=== PATIENT | female | born 1960 | race Caucasian/White ===

== ENCOUNTER 2016-08-19 22:43 | Inpatient (IN) | payer BC, MEDICARE ==
[~2016-08-19] VITALS: Ht 170.2 cm; Wt 82.3 kg
[~2016-08-19 22:43] MED LIST: ABAT125S SC; CHOL500021 OR; COPP2TAB PO; CYANLIQ OR; CYCL1TAB18 PO; DOCU-94 PO; FENT100D2 TOP; FENT75DI2 TD; FOLITAB45 OR; FURO80TA3 PO; LEUC5TAB PO; MAGN400C3 PO; METH25IN14 IJ; MULT-224 PO; OXY20CRT PO; POTA20TA53 PO; PRED1TAB19 PO; PREG100C PO; PREG50CA PO
[2016-08-19 23:14] LABS: Basophils # (auto) 0 uL; CONDITION Y; DEFINITIVE SEE PRINTOUT; Eosinophils # (auto) 0 uL; Eosinophils % (auto) 2.8 % (0.0-7.0); Hematocrit 28.8 % (36.0-46.0); Hemoglobin 9.6 g/dL (12.2-16.2); Lymphocytes # (auto) 0.6 uL; Lymphocytes % (auto) 44.1 % (10.0-50.0); Mean Corpuscular Hemoglobin 32.3 pg (28.0-32.0); Mean Corpuscular Hgb Conc. 33.3 g/dL (32.0-36.0); Mean Platelet Volume 10.5 fL (7.4-10.4); Monocytes # (auto) 0 uL; Monocytes % (auto) 0.3 % (0.0-12.0); Neutrophils # (auto) 0.7 uL; Neutrophils % (auto) 52.8 % (37.0-80.0); Platelet Count (auto) 192 10^3/uL (140-450); Red Cell Distribution Width 14.9 % (11.6-16.0); SUSPECT SEE PRINTOUT
[2016-08-19 23:26] LABS: White Blood Cell 1.3 10^3/uL (4.4-10.8)
[2016-08-19] MEDS ORDERED: SODIUM CHLORIDE 0.9% 1,000 ML IV ONE (23:30)
[2016-08-19] MEDS ORDERED: IBUPROFEN 600 MG TAB PO ONE (23:30)
[2016-08-19] MEDS ORDERED: ACETAMINOPHEN 325 MG TAB PO ONE (23:30)
[2016-08-19 23:32] LABS: Albumin 1.3 g/dL (3.4-5.0); Anion Gap 15 (5-15); BUN/Creatinine Ratio 28.7; Blood Urea Nitrogen 29 mg/dL (7-18); Calcium 6.7 mg/dL (8.5-10.1); Carbon Dioxide 18 mmol/L (21-32); Chloride 112 mmol/L (98-107); GFR African American 73 mL/min; GFR Non-African American 61 mL/min; Glucose 54 mg/dL (74-106); Magnesium 1.6 mg/dL (1.6-2.6); Potassium 3.5 mmol/L (3.5-5.1); Sodium 145 mmol/L (136-145)
[2016-08-19 23:35] LABS: INR 1.83 (0.9-1.15); Partial Thromboplastin Time 59.1 sec (22.64-33.71)
[2016-08-19 23:37] LABS: Lactic Acid w/Reflex 7.2 mmol/L (0.4-2.0)
[2016-08-19 23:39] LABS: Alkaline Phosphatase 141 U/L (45-117); Aspartate Aminotransferase 22 U/L (15-37); Bilirubin, Total 1.1 mg/dL (0.2-1.0); Total Protein 3.8 g/dL (6.4-8.2)
[2016-08-19 23:43] LABS: B-Type Natriuretic Peptide 154.79 pg/mL (0-100)
[2016-08-19] MEDS ORDERED: NOREPINEPHRINE BITARTRATE 250 ML IV ONE (23:44)
[2016-08-19 23:45] LABS: REFLEX LACTIC ACID YES OR NO YES
[2016-08-19 23:46] LABS: Prothrombin Time 20.1 sec (9.37-12.3); Temperature: 22.3 C (20.0-25.0)
[2016-08-19 23:50] LABS: Urine RBC None Seen /hpf (0 - 4)
[2016-08-19 23:54] LABS: Platelet Estimate Adequate; RBC Morphology Normal
[2016-08-19 23:58] LABS: Urine Bilirubin Negative (Negative); Urine Blood Negative /uL (Negative); Urine Color Yellow (Yellow); Urine Glucose Normal (Normal); Urine Hyaline Cast FEW /lpf (0 - 2); Urine Ketone Negative (Negative); Urine Squamous Epithelial Cell FEW /hpf (<5); Urine WBC Clumps PRESENT /hpf (None Seen); Urine pH 5.5 (5.0-8.0)
[2016-08-20] VITALS (36 sets, daily range): BP systolic 41–150; BP diastolic 4–105
[2016-08-20] MEDS ORDERED: VANCOMYCIN 1GM/250ML D5W 250 ML IV ONE
[2016-08-20] MEDS ORDERED: cefTRIAXone 1GM/50ML D5W 50 ML IV ONE
[2016-08-20 00:03] LABS: Urine Nitrite POSITIVE (Negative)
[2016-08-20] MEDS ORDERED: PREGABALIN 25 MG CAP PO ONE (00:30)
[2016-08-20] MEDS ORDERED: methylPREDNISolone SOD SUCC 125 MG/2 ML VL IV ONE (01:30)
[2016-08-20] MEDS ORDERED: DOPamine 1600MCG/ML 250 ML IV ONE (01:30)
[2016-08-20] MEDS ORDERED: SODIUM CHLORIDE 0.9% 2,000 ML IV ONE (01:30)
[2016-08-20 01:32] LABS: Allen Test Yes; Base Excess -9.9 mmol/L (-2.0-2.0); Blood 02Sat 90.7 % (96-100); Blood COHb 0.2 % (0.5-1.5); Blood MetHb 0.2 % (0.0-1.5); HCO3 15.2 mmol/L (22-26.0); HHb 9.3 % (0.0-5.0); MODE NASAL CANNULA; O2Hb 90.3 % (94.0-97.0); PO2 89.5 mmHg (80.0-100.0); PO2(T) 89.5 mmHg (80.0-100.0); Sample Type Arterial; pH 7.322 (7.350-7.450)
[2016-08-20] MEDS ORDERED: ALBUMIN 5% 250 ML IV ONE ×2 (02:00)
[2016-08-20] MEDS ORDERED: IOHEXOL 350 MG/ML 100ML IJ ONE (02:51)
[2016-08-20] MEDS ORDERED: DIGOXIN (250MCG/ML) 2 ML AMPULE IV ONE ×2 (03:00→03:15)
[2016-08-20] MEDS ORDERED: PHENYLEPHRINE IV 250 ML IV ONE ×2 (04:40→15:30)
[2016-08-20] MEDS ORDERED: PHENYLEPHRINE INJ 20 MG in SODIUM CHL 0.9% 248 ML IV ONE (04:45)
[2016-08-20] MEDS ORDERED: NOREPINEPHRINE BITARTRATE 250 ML IV SCH ×2 (05:36)
[2016-08-20] MEDS ORDERED: SODIUM CHLORIDE 0.9% 1,000 ML IV SCH ×2 (05:36→16:15)
[2016-08-20] MEDS ORDERED: ACETAMINOPHEN 325 MG TAB PO PRN (05:45)
[2016-08-20] MEDS ORDERED: ALBUTEROL SULF 2.5 MG/0.5ML(0.5%) NEB SOLN NEB PRN (05:45)
[2016-08-20] MEDS ORDERED: ONDANSETRON HCL 4 MG/2 ML VIAL IV PRN (05:45)
[2016-08-20] MEDS ORDERED: ALBUMIN 25% 50 ML IV ONE (05:45)
[2016-08-20] MEDS ORDERED: NITROGLYCERIN 0.4 MG SL TAB SL PRN (05:45)
[2016-08-20] MEDS ORDERED: VASOPRESSIN 50 UNITS in SODIUM CHL 0.9% 247.5 ML IV SCH (05:45)
[2016-08-20] MEDS ORDERED: IPRATROPIUM BROM 0.5 MG/2.5ML INH SOL NEB PRN (05:45)
[2016-08-20] MEDS ORDERED: MORPHINE SULFATE 4 MG/ML SYRG IV PRN (05:45)
[2016-08-20] MEDS ORDERED: VASOPRESSIN 20 UNIT/ML ONE ×2 (06:08→06:10)
[2016-08-20 08:36] LABS: Allen Test No; Base Excess -12.6 mmol/L (-2.0-2.0); Blood 02Sat 87.2 % (96-100); Blood COHb 0.3 % (0.5-1.5); Blood MetHb 0.2 % (0.0-1.5); HCO3 14.6 mmol/L (22-26.0); HHb 12.7 % (0.0-5.0); MODE NASAL CANNULA; O2Hb 86.8 % (94.0-97.0); PO2 73.3 mmHg (80.0-100.0); PO2(T) 73.3 mmHg (80.0-100.0); Room 1023-ERT; Sample Type Arterial; pH 7.192 (7.350-7.450)
[2016-08-20] MEDS ORDERED: DEXTROSE 50% SYRINGE 50 ML IV ONE (08:43)
[2016-08-20] MEDS ORDERED: PHENYLEPHRINE INJ 20 MG in SODIUM CHL 0.9% 250 ML IV SCH (09:00)
[2016-08-20] MEDS ORDERED: DEXTROSE (50%) 50ML SYRG IV ONE (09:00)
[2016-08-20] MEDS ORDERED: MIDAZOLAM DRIP 50 mg/50mL NS 50 ML IV SCH ×2 (10:23→10:28)
[2016-08-20] MEDS ORDERED: ETOMIDATE (2MG/ML) 20ML VIAL IV ONE ×2 (10:28→10:30)
[2016-08-20] MEDS ORDERED: SUCCINYLCHOLINE CHLORIDE 20 MG/ML 10ML VIAL IV ONE ×2 (10:29→10:30)
[2016-08-20] MEDS ORDERED: VANCOMYCIN PER PHARMACY 0 MG IV SCH (10:30)
[2016-08-20] MEDS ORDERED: HYDROCORTISONE SOD SUCC 100 MG/2ML INJ VIAL IV ONE ×2 (10:30)
[2016-08-20] MEDS ORDERED: MIDAZOLAM DRIP 50 mg/50mL NS 50 ML IV ONE (10:44)
[2016-08-20] MEDS: VANCOMYCIN 1GM/250ML D5W 250 ML IV SCH (11:24)
[2016-08-20] MEDS: ENOXAPARIN SOD 40 MG/0.4 ML SYRINGE SC SCH (11:26)
[2016-08-20] MEDS: MEROPENEM 1GM IVPB 100 ML IV SCH ×2 (11:45→18:13)
[2016-08-20] MEDS: PANTOPRAZOLE SODIUM 40 MG/10 ML VIAL IV SCH (11:51)
[2016-08-20] MEDS ORDERED: LIDOCAINE 1% HCL (LOCAL ANESTH.) INJ 20ML MDV ID ONE (13:15)
[2016-08-20 14:16] LABS: Allen Test No; Base Excess -15.6 mmol/L (-2.0-2.0); Blood 02Sat 95.6 % (96-100); Blood MetHb 0.3 % (0.0-1.5); HCO3 10.4 mmol/L (22-26.0); HHb 4.4 % (0.0-5.0); MODE VENT - A/C; O2Hb 95.3 % (94.0-97.0); PCO2 25.1 mmHg (35.0-45.0); PCO2(T) 25.1 mmHg (35.0-45.0); PIP 28; PO2 438.7 mmHg (80.0-100.0); PO2(T) 438.7 mmHg (80.0-100.0); Sample Type Arterial; pH 7.235 (7.350-7.450)
[2016-08-20] MEDS ORDERED: EPINEPHrine HCL 250 ML IV ONE ×2 (14:21→14:41)
[2016-08-20] MEDS: ALBUMIN 25% 100 ML IV SCH ×2 (15:51→22:00)
[2016-08-20] MEDS ORDERED: SODIUM CHLORIDE 0.9% 1,000 ML IV ONE (16:15)
[2016-08-20] MEDS: HYDROCORTISONE SOD SUCC 100 MG/2ML INJ VIAL IV SCH ×2 (16:23→22:00)
[2016-08-20] MEDS ORDERED: PHENYLEPHRINE INJ 80 MG in SODIUM CHL 0.9% 250 ML IV SCH (17:40)
[2016-08-20] MEDS ORDERED: EPINEPHrine HCL 250 ML IV SCH (17:51)
[2016-08-20] MEDS: SODIUM BICARBONATE 50ML VIAL 150 ML in D5W 5% 1,000 ML IV SCH ×2 (18:09→23:00)
[2016-08-20 20:29] LABS: Allen Test No; Base Excess -15.2 mmol/L (-2.0-2.0); Blood MetHb 0.3 % (0.0-1.5); MODE VENT - A/C; O2Hb 93.7 % (94.0-97.0); PCO2 21.7 mmHg (35.0-45.0); PCO2(T) 22.2 mmHg (35.0-45.0); PO2 394.4 mmHg (80.0-100.0); PO2(T) 397.2 mmHg (80.0-100.0); Sample Type Arterial; pH 7.282 (7.350-7.450)
[2016-08-20] MEDS ORDERED: SODIUM BICARBONATE 8.4% INJ 50ML SYRINGE ONE (20:50)
[2016-08-20] MEDS ORDERED: SODIUM BICARBONATE 8.4 % INJ 50ML VIAL IV ONE (21:00)
[2016-08-20] MEDS ORDERED: cefTRIAXone 1GM/50ML D5W 50 ML IV SCH (21:00)
[2016-08-20] MEDS ORDERED: SODIUM CHLOR 0.9% PF (SALINE LOCK) 10ML VIAL IV SCH (22:00)
[2016-08-21] VITALS (61 sets, daily range): BP systolic 38–141; BP diastolic 20–99
[2016-08-21] MEDS: VANCOMYCIN 1GM/250ML D5W 250 ML IV SCH
[2016-08-21 00:59] LABS: Allen Test No; Base Excess -10.7 mmol/L (-2.0-2.0); Blood 02Sat 93.9 % (96-100); Blood COHb 0.1 % (0.5-1.5); Blood MetHb 0.3 % (0.0-1.5); HCO3 14.4 mmol/L (22-26.0); HHb 6.1 % (0.0-5.0); MODE VENT - A/C; O2Hb 93.5 % (94.0-97.0); PCO2 28.8 mmHg (35.0-45.0); PCO2(T) 29.4 mmHg (35.0-45.0); PO2 421.6 mmHg (80.0-100.0); PO2(T) 424.5 mmHg (80.0-100.0); Sample Type Arterial; pH 7.318 (7.350-7.450)
[2016-08-21] MEDS ORDERED: SODIUM BICARBONATE 8.4% INJ 50ML SYRINGE ONE ×2 (01:08→02:28)
[2016-08-21] MEDS ORDERED: SODIUM BICARBONATE 8.4 % INJ 50ML VIAL IV ONE (01:15)
[2016-08-21 01:16] LABS: Anion Gap 18 (5-15); BUN/Creatinine Ratio 23.3; Blood Urea Nitrogen 24 mg/dL (7-18); Carbon Dioxide 14 mmol/L (21-32); Chloride 112 mmol/L (98-107); GFR African American 72 mL/min; GFR Non-African American 59 mL/min; Glucose 115 mg/dL (74-106); Magnesium 1.6 mg/dL (1.6-2.6); Potassium 3.6 mmol/L (3.5-5.1); Sodium 144 mmol/L (136-145)
[2016-08-21 01:21] LABS: Basophils # (auto) 0 uL; Basophils % (auto) 0.1 % (0.0-2.0); CONDITION Y; DEFINITIVE SEE PRINTOUT; Eosinophils # (auto) 0.3 uL; Lymphocytes # (auto) 1.3 uL; Lymphocytes % (auto) 9.9 % (10.0-50.0); Mean Corpuscular Hemoglobin 33.2 pg (28.0-32.0); Mean Corpuscular Hgb Conc. 34.1 g/dL (32.0-36.0); Mean Corpuscular Volume 97.4 fL (80.0-100.0); Mean Platelet Volume 11.8 fL (7.4-10.4); Monocytes # (auto) 0 uL; Monocytes % (auto) 0.3 % (0.0-12.0); Neutrophils # (auto) 11.2 uL; Neutrophils % (auto) 87.7 % (37.0-80.0); Platelet Count (auto) 38 10^3/uL (140-450); Red Cell Distribution Width 15.4 % (11.6-16.0); SUSPECT SEE PRINTOUT; White Blood Cell 12.8 10^3/uL (4.4-10.8)
[2016-08-21 01:26] LABS: Calcium < 5.0 mg/dL (8.5-10.1)
[2016-08-21 01:28] LABS: Hemoglobin 5.8 g/dL (12.2-16.2)
[2016-08-21 01:29] LABS: INR 5.31 (0.9-1.15); Partial Thromboplastin Time > 170.00 sec (22.64-33.71)
[2016-08-21] MEDS ORDERED: MAGNESIUM SULFATE 1GM/100ML 200 ML IV ONE (02:01)
[2016-08-21 02:02] LABS: Lactic Acid w/Reflex 9.4 mmol/L (0.4-2.0)
[2016-08-21 02:05] LABS: REFLEX LACTIC ACID YES OR NO YES
[2016-08-21] MEDS ORDERED: CALCIUM GLUC IV ONE ×4 (02:15)
[2016-08-21] MEDS ORDERED: PHYTONADIONE (VIT K)10 MG/ML 1ML VIAL SUBCUT ONE (02:15)
[2016-08-21] MEDS ORDERED: SODIUM CHL 0.9% IV ONE ×4 (02:15)
[2016-08-21] MEDS ORDERED: CALCIUM GLUC 4.65 MEQ/10ML IV ONE (03:00)
[2016-08-21] MEDS: MAGNESIUM SULFATE 1GM/100ML 100 ML IV SCH ×2 (03:00→04:00)
[2016-08-21 04:11] LABS: Allen Test No; Base Excess -8.8 mmol/L (-2.0-2.0); Blood 02Sat 95.2 % (96-100); Blood COHb 0.2 % (0.5-1.5); Blood MetHb 0.3 % (0.0-1.5); HCO3 15.6 mmol/L (22-26.0); HHb 4.8 % (0.0-5.0); MODE VENT - A/C; O2Hb 94.7 % (94.0-97.0); PCO2(T) 28.6 mmHg (35.0-45.0); PO2 376.3 mmHg (80.0-100.0); Sample Type Arterial; pH 7.365 (7.350-7.450)
[2016-08-21] MEDS ORDERED: PHENYLEPHRINE IV 250 ML IV ONE ×2 (04:29→04:38)
[2016-08-21] MEDS ORDERED: PHENYLEPHRINE HCL 10 MG/ML VL ONE (04:41)
[2016-08-21] MEDS: MEROPENEM 1GM IVPB 100 ML IV SCH ×2 (05:10→12:49)
[2016-08-21] MEDS: ALBUMIN 25% 100 ML IV SCH (07:36)
[2016-08-21] MEDS: HYDROCORTISONE SOD SUCC 100 MG/2ML INJ VIAL IV SCH (07:39)
[2016-08-21 08:45] LABS: Basophils # (auto) 0 uL; Basophils % (auto) 0.1 % (0.0-2.0); CONDITION Y; DEFINITIVE SEE PRINTOUT; Eosinophils # (auto) 0.2 uL; Hematocrit 22.8 % (36.0-46.0); Hemoglobin 7.8 g/dL (12.2-16.2); Lymphocytes # (auto) 1.1 uL; Lymphocytes % (auto) 6.6 % (10.0-50.0); Mean Corpuscular Hemoglobin 32.2 pg (28.0-32.0); Mean Corpuscular Hgb Conc. 34.4 g/dL (32.0-36.0); Mean Corpuscular Volume 93.4 fL (80.0-100.0); Mean Platelet Volume 11.3 fL (7.4-10.4); Monocytes # (auto) 2.8 uL; Monocytes % (auto) 17.6 % (0.0-12.0); Neutrophils # (auto) 12.1 uL; Neutrophils % (auto) 74.7 % (37.0-80.0); Red Cell Distribution Width 16.4 % (11.6-16.0); SUSPECT SEE PRINTOUT; White Blood Cell 16.1 10^3/uL (4.4-10.8)
[2016-08-21] MEDS ORDERED: AMIODARONE HCL 900 MG in DEXTROSE 500 ML IV SCH (08:50)
[2016-08-21 08:56] LABS: Base Excess -12.7 mmol/L (-2.0-2.0); Blood 02Sat 95.8 % (96-100); Blood COHb 0.1 % (0.5-1.5); Blood MetHb 0.3 % (0.0-1.5); HCO3 12.9 mmol/L (22-26.0); HHb 4.2 % (0.0-5.0); MODE VENT - A/C; O2Hb 95.4 % (94.0-97.0); PCO2 28.4 mmHg (35.0-45.0); PCO2(T) 28.4 mmHg (35.0-45.0); PO2 295.7 mmHg (80.0-100.0); PO2(T) 295.7 mmHg (80.0-100.0); Sample Type Arterial; pH 7.274 (7.350-7.450)
[2016-08-21 08:58] LABS: Platelet Count (auto) 14 10^3/uL (140-450)
[2016-08-21 09:01] LABS: INR 2.01 (0.9-1.15)
[2016-08-21 09:08] LABS: Prothrombin Time 22.1 sec (9.37-12.3)
[2016-08-21 09:09] LABS: Albumin 2.3 g/dL (3.4-5.0); Alkaline Phosphatase 66 U/L (45-117); Anion Gap 20 (5-15); Aspartate Aminotransferase 114 U/L (15-37); Bilirubin, Total 2.5 mg/dL (0.2-1.0); Blood Urea Nitrogen 24 mg/dL (7-18); Carbon Dioxide 15 mmol/L (21-32); Chloride 107 mmol/L (98-107); GFR African American 60 mL/min; GFR Non-African American 50 mL/min; Glucose 210 mg/dL (74-106); Partial Thromboplastin Time 119.7 sec (22.64-33.71); Potassium 3.4 mmol/L (3.5-5.1); Sodium 142 mmol/L (136-145); Total Protein 3.6 g/dL (6.4-8.2)
[2016-08-21 09:31] LABS: Platelet Estimate Markedly Decreased; Stomatocytes Few
[2016-08-21 09:43] LABS: Calcium < 5.0 mg/dL (8.5-10.1)
[2016-08-21] MEDS: PANTOPRAZOLE SODIUM 40 MG/10 ML VIAL IV SCH (10:00)
[2016-08-21] MEDS: ENOXAPARIN SOD 40 MG/0.4 ML SYRINGE SC SCH (10:00)
[2016-08-21] MEDS ORDERED: CALCIUM CHL 100MG/ML 1,000 MG in D5W 5% 100 ML IV ONE (10:45)
[2016-08-21] MEDS ORDERED: NOREPINEPHRINE BITARTRATE 16 MG in D5W 5% 250 ML IV SCH (11:17)
[2016-08-21] MEDS ORDERED: VANCOMYCIN 1GM/250ML D5W 250 ML IV SCH (16:00)
[2016-08-21] MEDS ORDERED: EPINEPHrine HCL 250 ML IV SCH (17:51)
[2016-08-22] MEDS ORDERED: NOREPINEPHRINE BITARTRATE 250 ML IV SCH (05:36)
== END 2016-08-21 18:30 | disposition expired | DRG 871 ==
LOC: EDBD 22:43 → ER 22:43 → TELE 22:44 → ICU WEST 08-20 13:50
PROVIDERS: ADMIT Nurse Practitioner; ATTEND Internal Medicine
PROC: 02H633Z Insertion of Infusion Device into Right Atrium, Percutaneous Approach (ICD-10-PCS; principal; 2016-08-20)
PROC: 5A1945Z Respiratory Ventilation, 24-96 Consecutive Hours (ICD-10-PCS; 2016-08-20)
PROC: 0BH17EZ Insertion of Endotracheal Airway into Trachea, Via Natural or Artificial Opening (ICD-10-PCS; 2016-08-20)
PROC: 30233L1 Transfusion of Nonautologous Fresh Plasma into Peripheral Vein, Percutaneous Approach (ICD-10-PCS; 2016-08-21)
PROC: 30233N1 Transfusion of Nonautologous Red Blood Cells into Peripheral Vein, Percutaneous Approach (ICD-10-PCS; 2016-08-21)
PROC: 30233R1 Transfusion of Nonautologous Platelets into Peripheral Vein, Percutaneous Approach (ICD-10-PCS; 2016-08-21)
PROC: 30233K1 Transfusion of Nonautologous Frozen Plasma into Peripheral Vein, Percutaneous Approach (ICD-10-PCS; 2016-08-21)
DX: A41.9 Sepsis, unspecified organism (principal); R65.21 Severe sepsis with septic shock; I50.43 Acute on chronic combined systolic (congestive) and diastolic (congestive) heart failure; E43 Unspecified severe protein-calorie malnutrition; J96.00 Acute respiratory failure, unspecified whether with hypoxia or hypercapnia; D65 Disseminated intravascular coagulation [defibrination syndrome]; D61.818 Other pancytopenia; N39.0 Urinary tract infection, site not specified; J98.11 Atelectasis; S32.049A Unspecified fracture of fourth lumbar vertebra, initial encounter for closed fracture; I47.1 Supraventricular tachycardia; E86.0 Dehydration; M06.9 Rheumatoid arthritis, unspecified; K76.0 Fatty (change of) liver, not elsewhere classified; K44.9 Diaphragmatic hernia without obstruction or gangrene; R79.1 Abnormal coagulation profile; Z96.651 Presence of right artificial knee joint; G62.9 Polyneuropathy, unspecified; E83.51 Hypocalcemia; Z83.3 Family history of diabetes mellitus; Z86.73 Personal history of transient ischemic attack (TIA), and cerebral infarction without residual deficits; Z93.1 Gastrostomy status; Z90.49 Acquired absence of other specified parts of digestive tract; Z98.84 Bariatric surgery status; Z88.5 Allergy status to narcotic agent; Z88.0 Allergy status to penicillin; Z88.8 Allergy status to other drugs, medicaments and biological substances; Z68.28 Body mass index [BMI] 28.0-28.9, adult; Z86.711 Personal history of pulmonary embolism
CPT/HCPCS: 36415; 36569; 36600; 71010; 71275; 74176; 80048; 80053; 80202; 81001; 82805; 82962; 83605; 83615; 83735; 83880; 84100; 84484; 85025; 85379; 85610; 85730; 86850; 86900; 86901; 86920; 87040; 87070; 87077; 87081; 87086; 87088; 87186; 87205; 93005; 93306; 94002; 94003; 96361; 96365; 96368; 96375; C9113; J0171; J0330; J0696; J2185; J2250; J3430; J3490; J7060